=== PATIENT | female | born 1955 | race Caucasian/White ===

== ENCOUNTER 2019-12-15 16:06 | Outpatient (REF) | payer SELFPAY ==
[2019-12-15 21:11] LABS: Estmated Average Glucose 105; Hemoglobin A1C 5.3 % (4.0-6.0)
[2019-12-15 21:32] LABS: Chol HDL Ratio 2.78 mg/dL (0.0-4.40); Cholesterol 186 mg/dL (0-200); Glucose 71 mg/dL (65-115); HDL Cholesterol 67 mg/dL (60-100); LDL Cholesterol Calculated 102 mg/dL (50-129); LDL HDL Ratio 1.52 RATIO (0.00-3.22); Triglycerides 86 mg/dL (0-150)
== END 2019-12-15 16:07 | disposition home or self-care (01) ==
LOC: LAB 16:06
PROVIDERS: Visit Provider Dermatology
DX: Z13.9 Encounter for screening, unspecified (principal)
CPT/HCPCS: 80061; 82947; 83036

== ENCOUNTER → 2020-12-27 09:10 | Outpatient (BNVA) | payer SELFPAY | PROVIDERS: Referring Provider Nurse Practitioner Family; Visit Provider Orthopaedic Surgery | DX: S52.532A Colles' fracture of left radius, initial encounter for closed fracture (principal); X58.XXXA Exposure to other specified factors, initial encounter | CPT/HCPCS: 73110 ==

== ENCOUNTER 2020-12-27 09:39 | Outpatient (CLI) | payer SELFPAY | END 2020-12-27 09:40 | disposition home or self-care (01) | LOC: SPT 09:40 | PROVIDERS: Visit Provider Orthopaedic Surgery | DX: Z46.89 Encounter for fitting and adjustment of other specified devices (principal); S52.532D Colles' fracture of left radius, subsequent encounter for closed fracture with routine healing; X58.XXXD Exposure to other specified factors, subsequent encounter | CPT/HCPCS: 87635; L3908 ==

== ENCOUNTER 2020-12-28 09:46 | Day surgery (SDC) | payer SELFPAY ==
[2020-12-27 14:40] VITALS: BMI 18.2
[2020-12-28] VITALS (9 sets, daily range): BP systolic 136–174; BP diastolic 64–95; PULSE 70–95; RESP 17–20; TEMP 36.3–36.8; O2SAT 95–99
--- NOTE | 2020-12-28 | XR_ITS ---
WS: [id number] Left wrist, AP and lateral C-arm fluoroscopy views, 12/28/2020 Clinical Data: orif wrist Comparison: Left wrist, 12/27/2020 Findings: Ventral plate was placed and there are multiple orthopedic screws holding it. The plate is reducing t he comminuted distal left radial fracture. XR/XR wrist LT 2V 31056 Impression: Internal fixation of distal left radial fracture.
--- NOTE | 2020-12-28 | SCC_ITS ---
Procedure Done: Open reduction internal fixation left distal radius 4807 seconds of fluoroscopic guidance, for a cumulative dose of 0.82 mGy, was provided to Dr. Real by the radiology department. C-arm images of the LEFT wrist were saved for the patient's permanent record. [facility]
--- NOTE | 2020-12-28 10:07 | ANES.PREANE2 ---
Pre-Anesthetic Assessment Pre-Anesthetic Assessment: Height/Weight: Height 1.6 m Weight 46.72 kg Preop Diagnosis: Fracture left distal radius Proposed Procedure: Operation Date: 12/28/20 11:30 Proposed Procedures p ORIF left distal radius 98654 S52.532A(Left) - Justo Real MD Was Beta Marcelino taken within 24 hours: N/A Social: Social History: No alcohol and No tobacco Exam: Pre-Anes Outpt Exam: alert, oriented x 3, clear to auscultation bilaterally and regular rate & rhythm Airway: Submandibular: WNL Cervical ROM: WNL MP: 1 History/ROS: No significant complaints Pulmonary: Pulmonary: None reported CV/HEM: CV/HEM: None reported : : None reported Hepatic: Hepatic: None reported GI: GI: None reported Metabolic: Metabolic: None reported Musc/skel: Musc/skel: None reported Neuropsych: Neuropsych: None reported Anesthetic Plan: ASA status: 2 Anesthesia: General Data Anesthesia Cardiac Studies: No Data to Display
[2020-12-28] MEDS: sodium chloride 0.9% 1,000 ML 30 ML IV (10:26)
--- NOTE | 2020-12-28 11:23 | W.PM.OPSUD ---
Surgery/Procedure H&P Update DATE OF PROCEDURE: December 28, 2020 DATE H&P PERFORMED: 12/27/20 PREOP DIAGNOSIS: Fracture left distal radius PLANNED PROCEDURE: Operation Date: 12/28/20 11:30 Proposed Procedures p ORIF left distal radius 00835 S52.532A(Left) - Justo Real MD
--- NOTE | 2020-12-28 13:14 | P.OP_ITS ---
Operative Report Date of procedure: December 28, 2020 Pre-op Diagnosis: Fracture left distal radius Post-op diagnosis: same Post-op Diagnosis: Intra-articular fracture left distal radius Post-op Findings: Same Procedure Done: Open reduction internal fixation left distal radius Implants: Josue Variax short narrow distal radius plate Surgeon: Justo Real Anesthesia: General Estimated blood loss (mL): 25 Tourniquet time (min): 28 Findings: The patient had a displaced intra-articular fracture of the distal radius consisting of a large volar articular fragment and smaller dorsal lunate facet fragment fragment with dorsal comminution and resulting dorsal angulation of the articular surface Procedure: Initial attempts were made at closed reduction however a satisfactory stable reduction could not be obtained. A decision was made to proceed with open reduction internal fixation.A 5 cm long incision was made along over the flexor carpi radialis tendon. Dissection was carried down through the tendon sheath. Dissection was carried down bluntly to the pronator quadratus. The pronator quadratus was elevated off of the distal radius leaving a cuff for later repair. Closed reduction was accomplished of the distal radius. A [place] Variax short narrow plate was applied. It was fixed distally with [] locking screws and proximally with 3 bicortical screws. Intraoperative imaging showed excellent position of the hardware. The wound was irrigated with saline. The pronator quadratus was reapproximated with 2-0 Vicryl. Subcutaneous tissues were closed with 2-0 Vicryl. The skin was closed with skin antelmo. Sterile dressings were applied. The patient was taken to outpatient surgery in stable condition.
--- NOTE | 2020-12-28 13:23 | ANE.PACU2 ---
Inpatient post-anesthesia follow up: Airway intact: Yes Vital signs: Temperature 98.2 F Pulse Rate 95 Respiratory Rate 18 Blood Pressure 146/95 Pulse Oximetry 96 Oxygen Delivery Me thod Room Air Oxygen Flow Rate Fraction of Inspir ed Oxygen Hydration adequate: Yes Nausea and vomiting: No Pain level: 2 Mental status: Baseline
[2020-12-28] MEDS: fentaNYL 50 mcg/mL INJ 2mL IVP (13:31)
--- NOTE | 2020-12-28 13:36 | SUR.PHASEI ---
pt awake alert lt wrist dressing and brace d/i pt able to move fingers distal fingers pink warm cap refill less than 3 seconds lt wrist elevated on chest , good resp effort noted on RA sats 95%
[2020-12-28] MEDS: HYDROcodone-acetaminophen 7.5-325 mg Tablet 1 TAB PO (14:25)
== END 2020-12-28 15:26 | disposition home or self-care (01) ==
PROVIDERS: Visit Provider Orthopaedic Surgery
PROC: (CPT 25608; principal; 2020-12-28 11:30)
DX: S52.572A Other intraarticular fracture of lower end of left radius, initial encounter for closed fracture (principal); V00.181A Fall from other rolling-type pedestrian conveyance, initial encounter
CPT/HCPCS: 25608; 73100; 76000; C1713; J0131; J0690; J1580; J2001; J2250; J2405; J2704; J3010; J7030

== ENCOUNTER → 2021-01-29 08:36 | Outpatient (BNVA) | payer SELFPAY | PROVIDERS: Visit Provider Orthopaedic Surgery | DX: Z48.89 Encounter for other specified surgical aftercare (principal); S52.532D Colles' fracture of left radius, subsequent encounter for closed fracture with routine healing; V00.18 Accident on other rolling-type pedestrian conveyance | CPT/HCPCS: 73110 ==

== ENCOUNTER 2021-09-24 10:21 | Outpatient (CLI) | payer MEDICARE, SELFPAY ==
--- NOTE | 2021-09-24 10:30 | XR_ITS ---
WS: [id number] Exam: XR foot RT min 3V* [id number] Date/Time of Exam: 09/24/2021 10:30 AM Reason For Exam: M79.671 - Pain in right foot Comparison 04/11/2018. No acute fracture or dislocation. Old fracture deformity of the calcaneus. Mild bunion. 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 No soft tissue forei gn bodies are seen. XR/XR foot RT min 3V* [id number] IMPRESSION: 1. No acute fracture. Mild degenerative changes. 2. Old fracture deformity of the calcaneus with loss of calcaneal angle.
== END 2021-09-24 10:22 | disposition home or self-care (01) ==
LOC: RAD 10:25
PROVIDERS: PCP Nurse Practitioner Family; Visit Provider Nurse Practitioner Family
DX: M79.671 Pain in right foot (principal)
CPT/HCPCS: 73630

== ENCOUNTER → 2021-11-12 11:16 | Outpatient (BNVA) | payer MEDICARE, SELFPAY | PROVIDERS: PCP Nurse Practitioner Family; Referring Provider Nurse Practitioner Family; Visit Provider Podiatrist Foot & Ankle Surgery | DX: M79.671 Pain in right foot (principal); M21.611 Bunion of right foot; M81.0 Age-related osteoporosis without current pathological fracture | CPT/HCPCS: 73630 ==

== ENCOUNTER → 2022-02-05 10:19 | Outpatient (BNVA) | payer MEDICARE, SELFPAY | PROVIDERS: PCP Nurse Practitioner Family; Visit Provider Nurse Practitioner Family | DX: R13.10 Dysphagia, unspecified (principal); R53.83 Other fatigue; R49.0 Dysphonia; H92.02 Otalgia, left ear; G89.29 Other chronic pain; J02.9 Acute pharyngitis, unspecified | CPT/HCPCS: 84439; 84443; 84481; 85025 ==

== ENCOUNTER → 2022-05-16 14:32 | Outpatient (BNVA) | payer MEDICARE, SELFPAY | PROVIDERS: PCP Nurse Practitioner Family; Referring Provider Nurse Practitioner Family; Visit Provider Surgery | DX: M79.89 Other specified soft tissue disorders (principal); Z12.11 Encounter for screening for malignant neoplasm of colon | CPT/HCPCS: 99203 ==

== ENCOUNTER → 2022-05-20 08:03 | Outpatient (BNVA) | payer MEDICARE, SELFPAY | PROVIDERS: PCP Nurse Practitioner Family; Referring Provider Surgery; Visit Provider Otolaryngology | DX: M79.89 Other specified soft tissue disorders (principal) | CPT/HCPCS: 99203; 99204 ==

== ENCOUNTER → 2024-02-15 11:34 | Outpatient (BNVA) | payer MEDICARE, SELFPAY | PROVIDERS: PCP Nurse Practitioner Family; Visit Provider Registered Nurse Neonatal Intensive Care | DX: R30.0 Dysuria (principal) | CPT/HCPCS: 81000; 87086 ==